=== PATIENT | female | born 1965 | race Two or more races ===

== ENCOUNTER → 2018-06-10 | Outpatient (CLI) | payer OTHER ==
[~2018-06-10] MED LIST: FISH OIL PO; LOSARTAN POTASS25 MG PO; METFORMIN HCL500 MG PO; VITAMIN B-12 PO; VITAMIN D5000 UNIT PO; ZETIA10 MG PO
--- NOTE | 2018-06-10 16:31 | Diagnostic Imaging Report ---
EXAM: CT Abdomen WITHOUT contrast INDICATION: Pancreatitis COMPARISON: None. TECHNIQUE: Abdomen was scanned utilizing a multidetector helical scanner without the use of IV contrast. Coronal and sagittal reformations were obtained. IV CONTRAST: None COMPLICATIONS: None RADIATION DOSE: Total DLP: 487 mGy*cm Estimated effective dose: (DLP x 0.015 x size factor) mSv CTDIvol has been reviewed. It is below the limits set by the Radiation Protocol Committee (RPC). Appropriate CT dose reduction techniques were utilized. FINDINGS: Lung Bases: Moderate motion limits. Solid Organs: Within limitations of nonenhanced exam, liver, adrenals, kidneys, spleen, and pancreas are unremarkable. No distinct inflammatory stranding about the pancreas. No fluid collection identified. Upper GI Tract: Small hiatal hernia. No small bowel obstructive changes. Vascularity: No aortic aneurysm. Lymph Nodes: No suspicious adenopathy. Other: Probable injection granuloma right upper gluteal region. Bones: No acute findings. IMPRESSION: 1. Within limitations of abdomen only and nonenhanced exam, no acute findings. Signed by: Dr. Fabio Oro MD on 06/10/2018 4:28 PM
--- NOTE | 2018-06-11 14:07 | Operative Report ---
DATE OF PROCEDURE: PROCEDURE: Esophagogastroduodenoscopy. PREOPERATIVE DIAGNOSES 1. Abdominal pain. 2. Dyspepsia. 3. Rule out peptic ulcer disease. 4. Gastric esophagitis. PROCEDURE: The video Olympus gastroscope was introduced in the mouth, esophagus, stomach, and to the 2nd portion of the duodenum. The major papilla appeared to be normal. The 1st and 2nd portions of the duodenum was normal. Pylorus was normal. Antrum and body showed scattered gastritis, just patchy in nature. Biopsies were obtained. Retroflexion was normal. Esophagus was normal. IMPRESSION: Gastritis. Will check the results of the biopsies. Pepcid 20 mg p.o. b.i.d. over the counter as needed. Patient to follow up in the office to discuss the results of the biopsies and to review other results. Job#: [id number] [place]
== END ==
LOC: CT 15:04
PROVIDERS: ATTEND Internal Medicine Gastroenterology
DX: R10.13 Epigastric pain (principal); K85.00 Idiopathic acute pancreatitis without necrosis or infection; E11.9 Type 2 diabetes mellitus without complications; I10 Essential (primary) hypertension; E66.3 Overweight; Z71.3 Dietary counseling and surveillance; Z87.19 Personal history of other diseases of the digestive system; Z87.891 Personal history of nicotine dependence
CPT/HCPCS: 74150